=== PATIENT | female | born 2005 | race Caucasian/White ===

== ENCOUNTER 2025-04-30 07:05 | Outpatient (REF) | payer OTHER, SELFPAY ==
--- NOTE | ~2025-04-30 | US_ITS ---
EXAMINATION: US PELVIS CLINICAL INFORMATION: Amenorrhea for 5 months COMPARISON: None available. TECHNIQUE: Ultrasound of the pelvis is performed using both transabdominal and transvaginal transducers along with Doppler. Transvaginal imaging is performed due to inadequate visualization transabdominally. FINDINGS: Uterus: The uterus is anteflexed and measures 5.6 x 4.2 x 5.2 cm. There is a thin-walled anechoic cystlike structure in the cul-de-sac on the right near the cervix that measures 2.1 cm diameter. There is also small amount of fluid in the cul-de-sac. The double wall endometrial thickness is 5 mm. The uterus is smooth in contour and has normal myometrial echogenicity. No visible fibroid. Adnexa: Both ovaries are visualized. There is normal color flow to the adnexa. There is no ovarian torsion. There is no pelvic ascites or fluid collection. Right ovary measures 3.2 x 2.2 x 2.0 cm. Left ovary measures 2.6 x 1.9 x 2.2 cm. US/US pelvic and transvaginal IMPRESSION: There is a thin-walled cystic structure 2.1 cm in diameter in the cul-de-sac on the right side, near the cervix, of uncertain significance or etiology. There is also trace ascites. This could represent a paraovarian cyst or other cyst like structure. Consider ultrasound follow up in 10 weeks. Electronically signed by: Mahamed Alfonso MD 04/30/2025 03:25 PM [facility] [place]
== END 2025-04-30 07:06 | disposition home or self-care (01) ==
LOC: HO.UMASIMG 07:05
PROVIDERS: Visit Provider Nurse Practitioner Women's Health
DX: N91.2 Amenorrhea, unspecified (principal)
CPT/HCPCS: 76830; 76856

== ENCOUNTER → 2025-04-30 14:30 | Outpatient (BNV) | payer OTHER, SELFPAY | PROVIDERS: Visit Provider Radiology Diagnostic Radiology | DX: N91.2 Amenorrhea, unspecified (principal) | CPT/HCPCS: 76830; 76856 ==